=== PATIENT | male | born 1995 | race Caucasian/White ===

== ENCOUNTER 2019-01-08 11:56 | Emergency (ER) | payer OTHER ==
[2019-01-08 12:05] VITALS: RESP 18; TEMP 99.1
--- NOTE | 2019-01-08 12:47 | ED ---
Psych HPI - General Chief Complaint: Psychiatric Symptoms Stated Complaint: mental health Time Seen by Provider: 01/08/19 12:21 Source: patient Mode of arrival: ambulatory - History of Present Illness Initial Comments: The 3-year-old male presenting today for chief complaint of family trauma. Patient states that these were called to his home because he was arguing with his sister and mother. He states they were doing crack cocaine and this was upsetting. He states it was a typical family trauma. He states the police recommended him come for psychiatric evaluation after he said he could control things with his mind. Patient states he was messing with the police. Patient denies any use of crack cocaine he states he does smoke marijuana. Patient denies any psychiatric history. Patient states he is upset about the family trauma causing elevated blood pressure. His review of systems is negative, patient denies any recent/current homicidal or suicidal fever, chills, shortness of breath, chest pain, back pain, abdominal pain, nausea or vomiting, numbness or tingling, dysuria or hematuria, constipation or diarrhea, headaches or visual changes, or any other complaints. Upon arrival patient's blood pressure and heart rate elevated remainder within acceptable limits. - Related Data Home Medications Medication Instructions Recorded Confirmed Antidepressant Unknown 1 tab PO DAILY 01/08/19 01/08/19 Allergies Allergy/AdvReac Type Severity Reaction Status Date / Time No Known Allergies Allergy Unverified 01/08/19 12:14 Review of Systems ROS Statement: Those systems with pertinent positive or pertinent negative responses have been documented in the HPI. ROS Other: All systems not noted in ROS Statement are negative. Past Medical History Past Medical History: Asthma History of Any Multi-Drug Resistant Organisms: None Reported Additional Past Surgical History / Comment(s): r eye Past Psychological History: No Psychological Hx Reported Smoking Status: Current every day smoker Past Alcohol Use History: None Reported Past Drug Use History: Marijuana General Exam - General Exam Comments Initial Comments: General: The patient is awake and alert, in no distress, and does not appear acutely ill. Eye: Pupils are equal, round and reactive to light, extra-ocular movements are intact. No nystagmus. There is normal conjunctiva bilaterally. No signs of icterus. Ears, nose, mouth and throat: There are moist mucous membranes and no oral lesions. Neck: The neck is supple, there is no tenderness or JVD. Cardiovascular: There is a regular rate and rhythm. No murmur, rub or gallop is appreciated. Respiratory: Lungs are clear to auscultation, respirations are non-labored, breath sounds are equal. No wheezes, stridor, rales, or rhonchi. Gastrointestinal: Soft, non-distended, non-tender abdomen without masses or organomegaly noted. There is no rebound or guarding present. Bowel sounds are unremarkable. Musculoskeletal: Normal ROM, no tenderness. Strength 5/5. Sensation intact. Pulses equal bilaterally 2+. Neurological: A&O x 3. CN II-XII intact, There are no obvious motor or sensory deficits. Coordination appears grossly intact. Speech is normal. Skin: Skin is warm and dry and no rashes or lesions are noted. Psychiatric: Cooperative, appropriate mood & affect, normal judgment. Limitations: no limitations Course Vital Signs 01/08/19 01/08/19 12:01 14:07 Temperature 99.1 F Pulse Rate 112 H 71 Respiratory 18 18 Rate Blood Pressure 189/113 143/77 O2 Sat by Pulse 97 99 Oximetry Medical Decision Making - Medical Decision Making 23-year-old male presenting for psychiatric evaluation brought in by police department. Patient denies any suicidal or homicidal ideations. Patient's review of systems negative he states he is here because of family trauma. Patient had psych evaluation they recommended discharge. Patient's blood pressure improved as well as heart rate. At this time we feel patient is stable for discharge as he has no psychiatric complaints and there is no obvious psychiatric illness. I do agree with EPS evaluation. I discussed the case with Dr. Fernandez who is agreeable with patients discharge. Pt discharged appearing well, continues to deny complaints. - Lab Data Lab Results 01/08/19 01/08/19 Range/Units 13:06 13:06 Urine Color Light Yellow Urine Appearance Cloudy (Clear) Urine pH 7.5 (5.0-8.0) Ur Specific [place] 1.007 (1.001-1.035) Urine Protein Negative (Negative) Urine Glucose (UA) Negative (Negative) Urine Ketones Negative (Negative) Urine Blood Negative (Negative) Urine Nitrite Negative (Negative) Urine Bilirubin Negative (Negative) Urine Urobilinogen <2.0 (<2.0) mg/dL Ur Leukocyte Esterase Negative (Negative) Urine RBC 2 (0-5) /hpf Amorphous Sediment Occasional H (None) /hpf Urine Mucus Rare H (None) /hpf Urine Opiates Screen Not Detected (NotDetected) Ur Oxycodone Screen Not Detected (NotDetected) Urine Methadone Screen Not Detected (NotDetected) Ur Propoxyphene Screen Not Detected (NotDetected) Ur Barbiturates Screen Not Detected (NotDetected) U Tricyclic Antidepress Not Detected (NotDetected) Ur Phencyclidine Scrn Not Detected (NotDetected) Ur Amphetamines Screen Not Detected (NotDetected) U Methamphetamines Scrn Not Detected (NotDetected) U Benzodiazepines Scrn Not Detected (NotDetected) Urine Cocaine Screen Not Detected (NotDetected) U Marijuana (THC) Screen Detected H (NotDetected) Disposition Clinical Impression: Normal exam, Encounter for psychological evaluation Disposition: HOME SELF-CARE Condition: Good Instructions (If sedation given, give patient instructions): Stress (ED) Additional Instructions: Please follow-up with family doctor in the next 2 days of symptoms have not improved. Please return to emergency room if the symptoms increase or worsen or for any other concerns. Is patient prescribed a controlled substance at d/c from ED?: No Referrals: None,Stated [Primary Care Provider] - 1-2 days [facility]] - 1-2 days Time of Disposition: 14:03
[2019-01-08 13:41] LABS: Amorphous Sediment,Urine Occasional /hpf; Appearance,Urine Cloudy (Clear); Bilirubin,Urine Negative (Negative); Blood,Urine Negative (Negative); Color,Urine Light Yellow; Glucose,Urine (UA) Negative (Negative); Ketones,Urine Negative (Negative); Leukocyte Esterase,Urine Negative (Negative); Mucus,Urine Rare /hpf; Nitrite,Urine Negative (Negative); PH, Urine 7.5 (5.0-8.0); Protein,Urine Negative (Negative); RBC,Urine 2 /hpf (0-5); Specific Gravity,Urine 1.007 (1.001-1.035); Urobilinogen,Urine <2.0 mg/dL (<2.0)
[2019-01-08 13:48] LABS: Cocaine Screen,Urine Not Detected (NotDetected); Phencyclidine Screen,Urine Not Detected (NotDetected); Urn Cannabinoid Scrn Detected (NotDetected)
[2019-01-08 13:49] LABS: Amphetamine Screen,Urine Not Detected (NotDetected); Barbiturate Screen,Urine Not Detected (NotDetected); Benzodiazepines Screen,Urine Not Detected (NotDetected); Methadone Screen, Urine Not Detected (NotDetected); Opiate Screen,Urine Not Detected (NotDetected); Oxycodone Screen, Urine Not Detected (NotDetected); Tricyclic Antidepressant,Urine Not Detected (NotDetected)
[2019-01-08 14:08] VITALS: BP 143/77; PULSE 71
== END 2019-01-08 14:07 | disposition home or self-care (01) ==
LOC: EC 11:56
DX: Z04.6 Encounter for general psychiatric examination, requested by authority (principal); R03.0 Elevated blood-pressure reading, without diagnosis of hypertension; F17.200 Nicotine dependence, unspecified, uncomplicated; Z79.899 Other long term (current) drug therapy
CPT/HCPCS: 80306; 81001; 82075; 99284

== ENCOUNTER → 2021-10-04 | Outpatient (CLI) | payer OTHER ==
[~2021-10-04] MED LIST: CASIRIVIMAB/IMDEVIMAB (EUA) 1,200 MG in SODIUM CHLORIDE 0.9% 100 ML IVPB ONE; SODIUM CHLORIDE 0.9% 50 ML IVPB ONE; SODIUM CHLORIDE 0.9% 500 ML 500 ML in EMPTY BAG 1 BAG IV PRN
[2021-10-04 13:25] VITALS: TEMP 98.6
[2021-10-04 14:03] VITALS: RESP 16
[2021-10-04 14:40] VITALS: BP 123/63; PULSE 79
== END | disposition home or self-care (01) ==
LOC: PROCWHC3 13:17
PROVIDERS: ATTEND Nurse Practitioner Adult Health
DX: U07.1 COVID-19 (principal)
CPT/HCPCS: 96360; Q0243; M0243

== ENCOUNTER 2022-03-15 11:25 | Emergency (ER) | payer BC ==
--- NOTE | 2022-03-15 13:11 | XR ---
EXAMINATION TYPE: XR chest 1V portable DATE OF EXAM: 03/15/2022 COMPARISON: Chest x-ray 05/08/2013 HISTORY: Cough, cold and congestion TECHNIQUE: Single frontal view of the chest is obtained. FINDINGS: There is no focal air space opacity, pleural effusion, or pneumothorax seen. The cardiac silhouette size is within normal limits. The osseous structures are intact, suspect mild spinal cur vature. IMPRESSION: No acute process.
[2022-03-15] MEDS ORDERED: IPRATROPIUM-ALBUTEROL 3 ML NEB INHALATION STA (13:39)
[2022-03-15] MEDS ORDERED: predniSONE 20 MG TAB PO STA (13:39)
[2022-03-15 13:52] VITALS: RESP 18
--- NOTE | 2022-03-15 15:04 | ED ---
General Adult HPI - General Chief complaint: Upper Respiratory Infection Stated complaint: congestion Time Seen by Provider: 03/15/22 12:53 Source: patient, RN notes reviewed, old records reviewed Mode of arrival: ambulatory - History of Present Illness Initial comments: Patient is a 26-year-old male with past medical history remarkable for asthma who presents emergency Department complaining of cough, wheezing since last night. Nurse's a nonproductive cough.. States he feels this is his asthma, however requested be sure that he does not have the Covid infection. Last night was out fishing in the rain, and states that may have contributed to her current symptoms. Denies any any abdominal pain, nausea, vomiting. Denies any chest pain. Denies any lower extremity edema. Has no other acute complaints at this time. No fevers or chills. - Related Data Home Medications Medication Instructions Recorded Confirmed Albuterol Sulfate [Albuterol 2 puff INHALATION RT-Q6H PRN 10/04/21 03/15/22 Sulfate Hfa] Dextroamphetamine/Amphetamine 20 mg PO DAILY 03/15/22 03/15/22 [Adderall Xr] Ibuprofen [Motrin] 800 mg PO Q8H PRN 03/15/22 03/15/22 Previous Rx's Medication Instructions Recorded predniSONE [Deltasone] 40 mg PO DAILY 5 Days #10 tab 03/15/22 Allergies Allergy/AdvReac Type Severity Reaction Status Date / Time No Known Allergies Allergy Verified 03/15/22 15:13 Review of Systems ROS Statement: Those systems with pertinent positive or pertinent negative responses have been documented in the HPI. Review of Systems: CONST: Denies fever EYES: Denies blurry vision ENT: Denies nasal congestion C/V: Denies Chest pain RESP: Endorses cough, wheezing GI: Denies abdominal pain : Denies dysuria SKIN: Denies rash. MSK: Denies joint pain. NEURO: Denies headache ROS Other: All systems not noted in ROS Statement are negative. Past Medical History Past Medical History: Asthma History of Any Multi-Drug Resistant Organisms: None Reported Additional Past Surgical History / Comment(s): r eye Past Anesthesia/Blood Transfusion Reactions: Unable to Obtain Past Psychological History: ADD/ADHD Smoking Status: Smoker, current status unknown Past Alcohol Use History: None Reported Past Drug Use History: Marijuana General Exam - General Exam Comments Initial Comments: General: Appears in no acute distress. HEAD: Normal with no signs of head trauma. EYES: PERRLA, EOMI, conjunctiva normal, no discharge. ENT: Hearing grossly intact, normal oropharynx. RESPIRATORY: Expiratory wheezing bilaterally. No rhonchi. No increased work of breathing. No hypoxia. C/V: Regular rate and rhythm. S1 and S2 auscultated, no edema, peripheral pulses 2+ and intact throughout ABD: Abd is soft, nontender, nondistended EXT: Normal range of motion, no obvious deformity SKIN: No rashes or lesions observed on exposed skin. NEURO: Alert and oriented 4. No focal deficits. Course Vital Signs 03/15/22 03/15/22 03/15/22 11:38 13:49 15:22 Temperature 97.7 F 97.2 F L Pulse Rate 121 H 97 95 Respiratory 20 18 18 Rate Blood Pressure 138/89 163/90 168/91 O2 Sat by Pulse 96 98 99 Oximetry Medical Decision Making - Medical Decision Making Based on the patient's presentation and physical exam, I do believe he is likely experiencing an asthma exacerbation this time. Cannot rule out acute infectious etiology either, and therefore we will obtain COVID-19 screening as well as chest x-ray. He will be given a breathing treatment as well as prednisone here in the department. He was in agreement this plan. Chest x-ray revealed no signs of acute cardiopulmonary process. Laboratory studies were remarkable for negative Covid, flu, RSV swab. On reevaluation, patient remains in no respiratory distress. Wheezing is improved. I do believe it is safe for him to be discharged home at this time. He was in agreement this plan. He will follow-up with his PCP. States he has albuterol at home and does not require refill of his inhaler. I will provide the patient with a prescription for prednisone 40 mg daily for 5 days. I instructed the patient to follow up with their PCP in the next 3 days. I explained that the patient should return to the emergency department if they experience any worsening symptoms. Strict return precautions were discussed with the patient. The patient expressed understanding of these instructions. I answered all questions that the patient had. The patient was discharged home in good condition with their prescriptions and follow up information. - Lab Data Lab Results 03/15/22 Range/Units 12:28 Influenza Type A (PCR) Not Detected (Not Detectd) Influenza Type B (PCR) Not Detected (Not Detectd) RSV (PCR) Not Detected (Not Detectd) SARS-CoV-2 (PCR) Not Detected (Not Detectd) Disposition Clinical Impression: Acute asthma exacerbation Disposition: HOME SELF-CARE Condition: Good Instructions (If sedation given, give patient instructions): Asthma (ED) Prescriptions: predniSONE [Deltasone] 40 mg PO DAILY 5 Days #10 tab Is patient prescribed a controlled substance at d/c from ED?: No Referrals: Cleopatra Goldsmith MD [Primary Care Provider] - 1-2 days Time of Disposition: 15:15
[2022-03-15 15:23] VITALS: BP 168/91; PULSE 95; TEMP 97.2
== END 2022-03-15 15:22 | disposition home or self-care (01) ==
LOC: EC 11:25
DX: J45.901 Unspecified asthma with (acute) exacerbation (principal); F17.200 Nicotine dependence, unspecified, uncomplicated; Z20.822 Contact with and (suspected) exposure to COVID-19
CPT/HCPCS: 87636; 71045; 99284; J7512